=== PATIENT | female | born 1945 | race Caucasian/White ===

== ENCOUNTER 2017-01-28 09:37 | Emergency (ER) | payer MEDICARE, OTHER ==
[~2017-01-28] VITALS: Ht 157.5 cm; Wt 95.9 kg
[~2017-01-28 09:37] MED LIST: ASPI325T6 PO; CALCIUM 500 W/V1 TAB PO; CELEBREX 200MG200 MG PO; CHOLESTEROL MA600 MG PO; CO Q-1010 MG PO; COUMADIN 1MG1 MG/TAB PO; FERROUS SU325 MG/TAB PO; FOLIC ACID 40400 MCG PO; FOLIC ACID0.4 MG PO; MULTIPLE VITAMI1 CAP PO; NEXIUM 40MG40 MG PO; NORCO 325 MG-7.1 TAB PO; ULTRAM 50MG TAB50 MG PO; VITAMIN C500 MG PO; VITAMIN D32000 I1 PO; ZOLOFT 50MG50 MG PO; [UNRECOGNIZED DRUG - OTHER]
[2017-01-28 09:43] VITALS: BP 158/81; TEMP 97.7
[2017-01-28] MEDS ORDERED: D3-5050000 IU (10:23)
[2017-01-28] MEDS ORDERED: NORCO 325 MG-51 TAB PO (11:03)
[2017-01-28] MEDS ORDERED: PROTONIX 40MG T40 MG PO (11:35)
[2017-01-28] MEDS ORDERED: CLARITIN 1010 MG/TAB PO (11:35)
[2017-01-28 11:54] VITALS: PULSE 69
== END 2017-01-28 12:10 | disposition home or self-care (01) ==
LOC: COL.ER 09:37
DX: S82.831A Other fracture of upper and lower end of right fibula, initial encounter for closed fracture (principal); K21.9 Gastro-esophageal reflux disease without esophagitis; X50.1XXA Overexertion from prolonged static or awkward postures, initial encounter; Y92.009 Unspecified place in unspecified non-institutional (private) residence as the place of occurrence of the external cause

== ENCOUNTER → 2017-09-29 | Outpatient (CLI) | payer MEDICARE, OTHER ==
[~2017-09-29] MED LIST changes: +CLARITIN 1010 MG/TAB PO; +D3-5050000 IU; +NORCO 325 MG-51 TAB PO; +PROTONIX 40MG T40 MG PO
== END ==
LOC: MC.RAD 07:51
DX: Z12.31 Encounter for screening mammogram for malignant neoplasm of breast (principal); I10 Essential (primary) hypertension

== ENCOUNTER 2017-11-22 10:35 | Observation (INO) | payer MEDICARE, OTHER ==
[~2017-11-22] VITALS: Ht 157.5 cm; Wt 84.5 kg
[2017-11-22 10:55] LABS: BASO # 0.1 (0.0-0.2); BASO % 1.9 % (0.0-2.0); EOS # 0.2 (0.0-0.7); EOS % 3.2 % (0-4.0); GRAN # 3.9 (1.4-6.5); GRAN % 63.7 % (42.2-75.2); HEMATOCRIT 40.4 % (37.0-47.0); HEMOGLOBIN 13.3 g/dl (12.5-16.0); LYMPH # 1.6 (1.2-3.4); LYMPH % 25.2 % (20.0-51.0); MEAN CELL VOLUME 87 fl (80.0-100.0); MEAN CORPUSCULAR HEMOGLOBIN 29 pg (27.0-31.0); MEAN CORPUSCULAR HGB CONC 33 g/dl (33.0-37.0); MEAN PLATELET VOLUME 10.6 fl (7.4-10.4); MONO # 0.4 (0.1-0.6); MONO % 5.7 % (1.7-9.3); PLATELET COUNT 187 K/mm3 (130-400); RED BLOOD COUNT 4.62 M/mm3 (4.10-5.30); REDCELL DISTRIBUTION WIDTH-CV 13.5 % (11.5-14.5)
[2017-11-22] MEDS ORDERED: PRINIVIL20 MG PO (10:58)
[2017-11-22 11:04] LABS: ALANINE AMINOTRANSFERASE 22 U/L (9-52); ALBUMIN 4.4 gm/dL (3.5-5.0); ALKALINE PHOSPHATASE 91 U/L (50-136); ANION GAP 13 mmol/L (7-16); AST,SGOT 22 U/L (15-37); BILIRUBIN,TOTAL 0.6 mg/dL (0.0-1.0); BLOOD UREA NITROGEN 20 mg/dL (7-17); CALCIUM 10.6 mg/dL (8.4-10.2); CARBON DIOXIDE 26 mmol/L (22-30); CHLORIDE 101 mmol/L (98-107); CREATININE, serum 0.85 mg/dL (0.52-1.25); GLUCOSE 105 mg/dL (74-106); LIPASE 109 U/L (23-300); SODIUM 140 mmol/L (137-145); TOTAL PROTEIN 7.8 gm/dL (6.4-8.2)
[2017-11-22 11:20] LABS: TROPONIN-I < 0.012 ng/mL (0.000-0.034)
[2017-11-22] MEDS ORDERED: MAGNESIUM200 MG PO (12:35)
[2017-11-22] MEDS ORDERED: OSCAL 500 TAB500 MG PO (12:35)
[2017-11-22] MEDS ORDERED: PHARMASSURE CHE30 MG PO (12:36)
[2017-11-22] MEDS ORDERED: FISH OIL 1000MG1 CAP PO (12:38)
[2017-11-22] MEDS ORDERED: D3-5050000 IU PO (12:38)
[2017-11-22] MEDS ORDERED: THE MEDICINE S200 M2 PO (12:38)
[2017-11-22 13:19] VITALS: BP 130/64; PULSE 69; TEMP 98.4
[2017-11-22 15:55] VITALS: BP 130/64; PULSE 69
[2017-11-22 16:16] VITALS: BP 129/53; PULSE 70; TEMP 98
[2017-11-22 20:33] VITALS: BP 129/70; PULSE 72; TEMP 97.8
[2017-11-22 20:55] LABS: COLLECTION METHOD CLEAN CATCH
[2017-11-22 21:04] LABS: MUCOUS Present /lpf; PH 5 (5-8); SQUAMOUS EPITHELIAL 0-2 /hpf; URINE APPEARANCE Clear; URINE BACTERIA Rare /hpf; URINE BILIRUBIN Negative (NEGATIVE); URINE BLOOD Negative (NEGATIVE); URINE COLOR Straw; URINE GLUCOSE Negative (NEGATIVE); URINE KETONE Negative (NEGATIVE); URINE LEUKOCYTE ESTERASE Trace (NEGATIVE); URINE NITRATE Negative (NEGATIVE); URINE PROTEIN(semi-quant) Negative (NEGATIVE); URINE RBC 0-2 /hpf; URINE UROBILINOGEN Negative (NEGATIVE)
[2017-11-22 23:10] VITALS: BP 138/71; PULSE 67; TEMP 98.6
[2017-11-23 06:31] LABS: BASO # 0.1 (0.0-0.2); BASO % 2.5 % (0.0-2.0); EOS # 0.2 (0.0-0.7); EOS % 4.5 % (0-4.0); GRAN # 2.5 (1.4-6.5); GRAN % 55.3 % (42.2-75.2); HEMOGLOBIN 11.8 g/dl (12.5-16.0); LYMPH # 1.3 (1.2-3.4); LYMPH % 29.8 % (20.0-51.0); MEAN CELL VOLUME 89 fl (80.0-100.0); MEAN CORPUSCULAR HEMOGLOBIN 29 pg (27.0-31.0); MEAN CORPUSCULAR HGB CONC 33 g/dl (33.0-37.0); MEAN PLATELET VOLUME 11.3 fl (7.4-10.4); MONO # 0.3 (0.1-0.6); MONO % 7.4 % (1.7-9.3); PLATELET COUNT 131 K/mm3 (130-400); REDCELL DISTRIBUTION WIDTH-CV 13.4 % (11.5-14.5)
[2017-11-23 06:32] LABS: HEMATOCRIT 36.3 % (37.0-47.0)
[2017-11-23 06:41] LABS: CALCIUM 9.4 mg/dL (8.4-10.2); CHOLESTEROL RISK RATIO 5.9; CREATININE, serum 0.84 mg/dL (0.52-1.25); POTASSIUM 4.1 mmol/L (3.4-5.0)
[2017-11-23 07:46] VITALS: BP 144/74; PULSE 72; TEMP 98.6
[2017-11-23 13:26] VITALS: BP 125/53; PULSE 80; TEMP 98.4
[2017-11-23] MEDS ORDERED: NITROSTAT0.4 MG/TAB SL (14:46)
== END 2017-11-23 16:30 | disposition home or self-care (01) ==
LOC: COL.ER 10:35 → MEDICAL 11:28
PROVIDERS: Emergency Medicine; Physician Assistant
DX: R07.9 Chest pain, unspecified (principal); I10 Essential (primary) hypertension; F32.9 Major depressive disorder, single episode, unspecified; K21.9 Gastro-esophageal reflux disease without esophagitis; Z79.899 Other long term (current) drug therapy
CPT/HCPCS: A9502; J1650; J7030

== ENCOUNTER → 2018-01-02 | Outpatient (CLI) | payer MEDICARE, OTHER ==
[~2018-01-02] MED LIST changes: +D3-5050000 IU PO; +FISH OIL 1000MG1 CAP PO; +MAGNESIUM200 MG PO; +NITROSTAT0.4 MG/TAB SL; +OSCAL 500 TAB500 MG PO; +PHARMASSURE CHE30 MG PO; +PRINIVIL20 MG PO; +THE MEDICINE S200 M2 PO
== END ==
LOC: COL.RAD 07:29
DX: K30 Functional dyspepsia (principal); K21.9 Gastro-esophageal reflux disease without esophagitis; R05 Cough; R49.0 Dysphonia
CPT/HCPCS: A9541

== ENCOUNTER → 2018-11-03 | Outpatient (CLI) | payer MEDICARE, OTHER | LOC: MC.RAD 11:46 | DX: Z12.31 Encounter for screening mammogram for malignant neoplasm of breast (principal) ==

== ENCOUNTER → 2019-11-05 | Outpatient (CLI) | payer MEDICARE, OTHER | LOC: MC.RAD 13:43 | DX: Z12.31 Encounter for screening mammogram for malignant neoplasm of breast (principal) ==

== ENCOUNTER → 2020-12-24 | Outpatient (CLI) | payer MEDICARE, OTHER | LOC: MC.RAD 11-14 08:45 | DX: Z12.31 Encounter for screening mammogram for malignant neoplasm of breast (principal) ==

== ENCOUNTER 2021-05-02 12:17 | Emergency (ER) | payer MEDICARE, OTHER ==
[~2021-05-02] VITALS: Ht 157.5 cm; Wt 91.8 kg
[2021-05-02 12:33] VITALS: TEMP 98.4
[2021-05-02 12:51] LABS: BASO # 0.1 K/mm3 (0.0-0.2); EOS # 0.2 K/mm3 (0.0-0.7); EOS % 2.8 % (0.0-4.0); GRAN # 4.4 K/mm3 (1.4-6.5); GRAN % 66.6 % (42.2-75.2); HEMOGLOBIN 11.7 g/dl (12.5-16.0); LYMPH # 1.5 K/mm3 (1.2-3.4); LYMPH % 22.9 % (20.0-51.0); MEAN CELL VOLUME 85 fl (80.0-100.0); MEAN CORPUSCULAR HEMOGLOBIN 27 pg (27-31); MEAN CORPUSCULAR HGB CONC 32 g/dl (33.0-37.0); MEAN PLATELET VOLUME 10.4 fl (7.4-10.4); MONO # 0.4 K/mm3 (0.1-0.6); MONO % 5.4 % (1.7-9.3); PLATELET COUNT 207 K/mm3 (130-400); RED BLOOD COUNT 4.35 M/mm3 (4.10-5.30); REDCELL DISTRIBUTION WIDTH-CV 14.6 % (11.5-14.5)
[2021-05-02 13:09] LABS: ALANINE AMINOTRANSFERASE 15 U/L (0-55); ALKALINE PHOSPHATASE 91 U/L (40-150); ANION GAP 12 mmol/L (7-16); AST,SGOT 20 U/L (5-34); BILIRUBIN,TOTAL 0.6 mg/dL (0.2-1.2); BLOOD UREA NITROGEN 17 mg/dL (10-20); CALCIUM 9.8 mg/dL (8.4-10.2); CARBON DIOXIDE 24 mmol/L (23-31); CHLORIDE 104 mmol/L (98-107); CREATININE, serum 0.94 mg/dL (0.57-1.11); GLUCOSE 95 mg/dL (70-99); POTASSIUM 4.1 mmol/L (3.5-4.5); SODIUM 140 mmol/L (136-145); TOTAL PROTEIN 7.6 gm/dL (6.2-8.1)
[2021-05-02 13:18] LABS: TROPONIN-I < 0.010 ng/mL (0.00-0.033)
[2021-05-02 16:20] VITALS: BP 137/69; PULSE 66
== END 2021-05-02 16:25 | disposition home or self-care (01) ==
LOC: COL.ER 12:17
PROVIDERS: Nurse Practitioner
DX: R07.89 Other chest pain (principal)

== ENCOUNTER 2021-08-02 07:21 | Emergency (ER) | payer MEDICARE, OTHER ==
[~2021-08-02] VITALS: Ht 157.5 cm; Wt 93.6 kg
[2021-08-02 07:30] VITALS: TEMP 98.1
[2021-08-02 08:03] LABS: BASO # 0.1 K/mm3 (0.0-0.2); BASO % 2.6 % (0.0-2.0); EOS # 0.2 K/mm3 (0.0-0.7); EOS % 4.3 % (0.0-4.0); GRAN # 3.3 K/mm3 (1.4-6.5); GRAN % 64.7 % (42.2-75.2); HEMATOCRIT 37.4 % (37.0-47.0); LYMPH # 1.1 K/mm3 (1.2-3.4); LYMPH % 21.7 % (20.0-51.0); MEAN CELL VOLUME 82 fl (80.0-100.0); MEAN CORPUSCULAR HEMOGLOBIN 26 pg (27-31); MEAN CORPUSCULAR HGB CONC 32 g/dl (33.0-37.0); MEAN PLATELET VOLUME 10.6 fl (7.4-10.4); MONO # 0.3 K/mm3 (0.1-0.6); MONO % 6.5 % (1.7-9.3); PLATELET COUNT 190 K/mm3 (130-400); RED BLOOD COUNT 4.57 M/mm3 (4.10-5.30); REDCELL DISTRIBUTION WIDTH-CV 14.6 % (11.5-14.5)
[2021-08-02 08:06] LABS: COLLECTION METHOD CLEAN CATCH
[2021-08-02 08:14] LABS: PH 6 (5-8); URINE APPEARANCE Hazy (CLEAR/HAZY); URINE BACTERIA Rare /hpf (NONE SEEN); URINE BILIRUBIN Negative (NEGATIVE); URINE BLOOD 2+ (NEGATIVE); URINE COLOR Yellow (YELLOW); URINE GLUCOSE Negative (NEGATIVE); URINE KETONE Negative (NEGATIVE); URINE LEUKOCYTE ESTERASE 1+ (NEGATIVE); URINE NITRATE Negative (NEGATIVE); URINE PROTEIN(semi-quant) Negative (NEGATIVE); URINE RBC >50 /hpf (0-2); URINE UROBILINOGEN Negative (NEGATIVE)
[2021-08-02 08:19] LABS: ALBUMIN 3.9 gm/dL (3.4-4.8); BILIRUBIN,TOTAL 0.5 mg/dL (0.2-1.2); CALCIUM 9.6 mg/dL (8.4-10.2); CREATININE, serum 0.98 mg/dL (0.57-1.11); POTASSIUM 4.1 mmol/L (3.5-4.5); TOTAL PROTEIN 7.8 gm/dL (6.2-8.1)
[2021-08-02] MEDS ORDERED: BACTRIM DS 8001 TAB PO (09:26)
[2021-08-02 09:44] VITALS: BP 151/97; PULSE 72
== END 2021-08-02 09:44 | disposition home or self-care (01) ==
LOC: COL.ER 07:21
PROVIDERS: Student in an Organized Health Care Education/Training Program
DX: N39.0 Urinary tract infection, site not specified (principal); Z90.49 Acquired absence of other specified parts of digestive tract; Z90.710 Acquired absence of both cervix and uterus; Z87.442 Personal history of urinary calculi; Z88.1 Allergy status to other antibiotic agents
CPT/HCPCS: Q9967

== ENCOUNTER → 2022-02-11 | Outpatient (CLI) | payer MEDICARE, OTHER ==
[~2022-02-11] MED LIST changes: +BACTRIM DS 8001 TAB PO
== END ==
LOC: MC.RAD 08:31
DX: Z12.31 Encounter for screening mammogram for malignant neoplasm of breast (principal)

== ENCOUNTER → 2022-06-22 | Outpatient (CLI) | payer MEDICARE, OTHER | LOC: COL.CARD 10:12 | DX: R00.2 Palpitations (principal) ==

== ENCOUNTER → 2023-04-13 | Outpatient (CLI) | payer MEDICARE ==
[~2023-04-13] MED LIST changes: +FLEXERIL 1010 MG/TAB PO
== END ==
LOC: MC.RAD 11:28
DX: Z12.31 Encounter for screening mammogram for malignant neoplasm of breast (principal)

== ENCOUNTER 2023-07-06 17:03 | Emergency (ER) | payer MEDICARE, OTHER ==
[~2023-07-06] VITALS: Ht 157.5 cm; Wt 95.5 kg
[2023-07-06] MEDS ORDERED: Morphine 4 MG/ML VIAL IV ONE (17:30)
[2023-07-06] MEDS ORDERED: Ondansetron 4 MG/2 ML VIAL IV ONE (17:30)
[2023-07-06 17:34] LABS: BASO # 0.1 K/mm3 (0.0-0.2); BASO % 1.9 % (0.0-2.0); EOS # 0.3 K/mm3 (0.0-0.7); EOS % 4.8 % (0.0-4.0); GRAN # 4.6 K/mm3 (1.4-6.5); GRAN % 67.3 % (42.2-75.2); HEMATOCRIT 37.7 % (37.0-47.0); HEMOGLOBIN 12.4 g/dl (12.5-16.0); LYMPH # 1.3 K/mm3 (1.2-3.4); LYMPH % 18.8 % (20.0-51.0); MEAN CELL VOLUME 88 fl (80.0-100.0); MEAN CORPUSCULAR HEMOGLOBIN 29 pg (27-31); MEAN CORPUSCULAR HGB CONC 33 g/dl (33.0-37.0); MEAN PLATELET VOLUME 10.8 fl (7.4-10.4); MONO # 0.5 K/mm3 (0.1-0.6); MONO % 6.8 % (1.7-9.3); PLATELET COUNT 210 K/mm3 (130-400); RED BLOOD COUNT 4.28 M/mm3 (4.10-5.30); REDCELL DISTRIBUTION WIDTH-CV 14.6 % (11.5-14.5)
[2023-07-06 17:47] LABS: ALANINE AMINOTRANSFERASE 23 U/L (0-55); ALBUMIN 3.9 gm/dL (3.4-4.8); ALKALINE PHOSPHATASE 92 U/L (40-150); ANION GAP 13 mmol/L (7-16); AST,SGOT 23 U/L (5-34); BILIRUBIN,TOTAL 0.3 mg/dL (0.2-1.2); BLOOD UREA NITROGEN 16 mg/dL (10-20); CALCIUM 10.2 mg/dL (8.4-10.2); CARBON DIOXIDE 20 mmol/L (23-31); CHLORIDE 105 mmol/L (98-107); CREATININE, serum 0.92 mg/dL (0.57-1.11); GLUCOSE 125 mg/dL (70-99); LIPASE 33 U/L (8-78); POTASSIUM 3.8 mmol/L (3.5-4.5); SODIUM 138 mmol/L (136-145); TOTAL PROTEIN 7.5 gm/dL (6.2-8.1)
[2023-07-06 17:55] LABS: TROPONIN-I < 0.010 ng/mL (0.00-0.033)
[2023-07-06] MEDS ORDERED: Iohexol 300 - 100 ML VIAL IV ONE (19:10)
[2023-07-06] MEDS ORDERED: NS 50 ML IV ONE (19:14)
[2023-07-06] MEDS ORDERED: OMNICEF 300MG300 MG PO (20:10)
[2023-07-06] MEDS ORDERED: cefTRIAXone 1 G in Water For Injection,Sterile 10 ML IV ONE (20:15)
[2023-07-06 20:30] VITALS: BP 145/84; PULSE 83; TEMP 98.2
== END 2023-07-06 20:30 | disposition home or self-care (01) ==
LOC: COL.ER 17:03
PROVIDERS: Personal Emergency Response Attendant
DX: J18.9 Pneumonia, unspecified organism (principal); K57.90 Diverticulosis of intestine, part unspecified, without perforation or abscess without bleeding; Z88.1 Allergy status to other antibiotic agents
CPT/HCPCS: J0696; Q9967

== ENCOUNTER 2023-09-01 13:00 | Outpatient (RCR) | payer MEDICARE, OTHER | END 2023-09-13 | disposition home or self-care (01) | LOC: WSST | DX: R13.14 Dysphagia, pharyngoesophageal phase (principal) ==

== ENCOUNTER → 2023-09-01 | Outpatient (CLI) | payer MEDICARE, OTHER ==
[~2023-09-01] MED LIST changes: +OMNICEF 300MG300 MG PO
== END ==
LOC: COL.RAD 12:39
DX: K21.9 Gastro-esophageal reflux disease without esophagitis (principal)

== ENCOUNTER 2024-01-03 10:21 | Observation (INO) | payer MEDICARE, OTHER ==
[2024-01-03] VITALS (14 sets, daily range): BP systolic 119–149; BP diastolic 49–79; PULSE 83–93; TEMP 98–98.4
[~2024-01-03] VITALS: Ht 157.5 cm; Wt 93.9 kg
[~2024-01-03 10:21] MED LIST changes: +LR 1,000 ML IV SCH
[2024-01-03 11:16] LABS: BASO # 0.1 K/mm3 (0.0-0.2); BASO % 1.9 % (0.0-2.0); EOS # 0.2 K/mm3 (0.0-0.7); EOS % 3.2 % (0.0-4.0); GRAN # 4.8 K/mm3 (1.4-6.5); GRAN % 68.8 % (42.2-75.2); HEMOGLOBIN 12.1 g/dl (12.5-16.0); LYMPH # 1.4 K/mm3 (1.2-3.4); LYMPH % 20.3 % (20.0-51.0); MEAN CELL VOLUME 88 fl (80.0-100.0); MEAN CORPUSCULAR HEMOGLOBIN 29 pg (27-31); MEAN CORPUSCULAR HGB CONC 33 g/dl (33.0-37.0); MEAN PLATELET VOLUME 10.5 fl (7.4-10.4); MONO # 0.4 K/mm3 (0.1-0.6); MONO % 5.5 % (1.7-9.3); PLATELET COUNT 193 K/mm3 (130-400); RED BLOOD COUNT 4.18 M/mm3 (4.10-5.30); REDCELL DISTRIBUTION WIDTH-CV 13.2 % (11.5-14.5)
[2024-01-03 11:17] LABS: HEMATOCRIT 36.8 % (37.0-47.0)
[2024-01-03] MEDS ORDERED: COZAAR 50MG50 MG/TAB PO (11:25)
[2024-01-03] MEDS ORDERED: PROTONIX 40MG T40 MG PO (11:25)
[2024-01-03] MEDS ORDERED: ALLERGY RELIEF PO (11:26)
[2024-01-03] MEDS ORDERED: D3 PO (11:27)
[2024-01-03] MEDS ORDERED: IRON PO (11:28)
[2024-01-03] MEDS ORDERED: CVS SPECTRAVIT1 EA15 PO (11:28)
[2024-01-03] MEDS ORDERED: VITAMIN C500 MG PO (11:28)
[2024-01-03] MEDS ORDERED: ECHINACEA PO (11:32)
[2024-01-03 11:35] LABS: CREATININE, serum 0.85 mg/dL (0.57-1.11)
[2024-01-03] MEDS ORDERED: WEGOVY1 MG/0.5 M SQ (11:36)
[2024-01-03] MEDS ORDERED: fentaNYL 50 MCG/ML 5 ML VIAL ONE (12:31)
[2024-01-03] MEDS ORDERED: dexAMETHasone 10 MG/ML VIAL ONE (12:31)
[2024-01-03] MEDS ORDERED: Lidocaine PF 2% (20 MG/ML) 5 ML VIAL ONE (12:31)
[2024-01-03] MEDS ORDERED: Ondansetron 4 MG/2 ML VIAL ONE (12:31)
[2024-01-03] MEDS ORDERED: Rocuronium 50 MG/5 ML Multi-Dose VIAL ONE ×2 (12:32→13:45)
[2024-01-03] MEDS ORDERED: droPERidol 2.5 MG/ML 2 ML VIAL IV PRN (13:30)
[2024-01-03] MEDS ORDERED: fentaNYL 50 MCG/ML 1 ML SYRINGE/VIAL [PACU/SDC ONLY] IV PRN (13:30)
[2024-01-03] MEDS ORDERED: Meperidine 50 MG/ML 1 ML VIAL IV PRN (13:30)
[2024-01-03] MEDS ORDERED: hydrALAZINE 20 MG/ML 1 ML VIAL IV PRN (13:30)
[2024-01-03] MEDS ORDERED: Topical Skin Adhesive 1 EACH (1 ML) TOP ONE (13:30)
[2024-01-03] MEDS ORDERED: HYDROmorphone 1 MG/1 ML SYRINGE [PACU/SDC ONLY] IV PRN (13:30)
[2024-01-03] MEDS ORDERED: hydrALAZINE 20 MG/ML 1 ML VIAL ONE (13:31)
[2024-01-03] MEDS ORDERED: fentaNYL 50 MCG/ML 2 ML VIAL ONE (14:23)
[2024-01-03] MEDS ORDERED: Morphine 4 MG/ML VIAL IV PRN (14:45)
[2024-01-03] MEDS ORDERED: Ondansetron 4 MG/2 ML VIAL IV PRN (14:45)
--- NOTE | 2024-01-03 16:40 | NUR ---
pt a&ox4 admitted to room from PACU. vss. pt on 4L nasal cannula. pt drowsy but easily arousable. at bedside. med rec and assessment complete. x6 abdominal incisions are cdi. scds to ble. pt tolerating ice chips. oriented to room. call light in reach. no needs at this time.
--- NOTE | 2024-01-03 23:15 | NUR ---
Patient assessed around this time, see shift assessment, A/O, assisted patient to walk at this time, felt dizzy and assisted patient back to bed, VSS, reports pain to abdomen as well medicated with [place] at 230, after few minutes of taking [place] patient complained of nausea, IV zofran given at 231, denies futher needs, call light and personal items within reach, will continue to monitor.
[2024-01-04] VITALS (12 sets, daily range): BP systolic 116–154; BP diastolic 73–83; PULSE 78–91; TEMP 97.9–98.4
--- NOTE | 2024-01-04 01:28 | NUR ---
Patient reports minimal pain at this time, reports the nausea is gone, reports she's been burping but has not pass any gas yet,denies further needs, still with oxygen via nasal cannula at 2LPM, satting 96%, will continue to monitor.
--- NOTE | 2024-01-04 08:35 | NUR ---
Pt doing okay this morning. She is currently sitting up in the chair. She is tolerating liquids, just stated that she has to take it slow. Pt reports that her throat feels "tight". Pt spouse arrived to the room, no questions at this time. Will continue to monitor.
[2024-01-04] MEDS ORDERED: NORCO 325 MG-51 TAB PO (08:47)
[2024-01-04] MEDS ORDERED: Losartan 50 MG TAB PO SCH (09:00)
[2024-01-04] MEDS ORDERED: Sertraline 50 MG TAB PO SCH (09:00)
[2024-01-04] MEDS ORDERED: Ascorbic Acid 500 MG TAB PO SCH (09:00)
--- NOTE | 2024-01-04 09:00 | NUR ---
JORGE met with patient and to complete initial assessment for discharge planning. Patient verified that she and /DIONNE Medina ([phone]) live in [place]. Patient lists her daughter Munira Velázquez ([phone]) as alternate contact. Patient sees Dr. Herman Haji as her PCP and uses [facility]. Patient reports to have a walker, scooter, wheelchair, shower chair, grab bars and CPAP at home. Patient reports to be normally independent with all activities. Patient is covered by Medicare [employer] and for [employer] insurances. Patient plans to return home at discharge. Discharge plan: Home
--- NOTE | 2024-01-04 11:00 | NUR ---
Pt became nauseated following pain medication. PRN zofran given. Also applied K-pad at that time for complaints of pain in her right shoulder. Pt reported that the nausea medication did help. Educated that it was possibly due to the pain medication being given with only fluids in her stomach. Stated that now since she could have full liquids, it would hopefully help. PT verbalized understanding
--- NOTE | 2024-01-04 13:04 | NUR ---
Iniiital visit; Patient resting, [employer] spoke with her offering God's blessings and an offer to keep her in [employer]'s prayers. He smiled and nodded.
--- NOTE | 2024-01-04 14:20 | NUR ---
Pt continues to do well, PRN pain medication working for her pain. Pt has had complaints of right shoulder pain in which she has been using the k-pad for. Right shoulder does have the appearance of being lower than her left shoulder. Will discuss with physician.
--- NOTE | 2024-01-04 20:00 | NUR ---
PT A&O X4 SITTING UP IN CHAIR. AMBULATED BACK TO BED WITH SBA. RT IN ROOM AND PLACED PT BACK ON 1L/NC 02 SAT WAS 88%. VSS. PT REPORTING PAIN HAS IMPROVED SINCE PRN NORCO GIVEN BY DAYSHIFT NURSE AT SHIFT CHANGE. PT CONTINUES TO USE KPAD TO HELP WITH RT SHOULDER PAIN. DENYING N/V OR FURTHER NEEDS. CALL LIGHT IN REACH
[2024-01-05] VITALS (7 sets, daily range): BP systolic 117–154; BP diastolic 72–78; PULSE 78–81; TEMP 97.5–98
--- NOTE | 2024-01-05 05:55 | NUR ---
PT RESTING SITTING UP IN RECLINER. GAVE PRN NORCO AT 0445 FOR ABD PAIN 10/23, WHEN REASSESSED PT REPORTS PAIN IS MUCH BETTER. DENYING N/V OR FURTHER NEEDS. CALL LIGHT IN REACH
--- NOTE | 2024-01-05 07:21 | NUR ---
Pt doing well this morning. She states that she feels better than yesterday and slept better last night. Pts right shoulder not bothering her as much. Pt has ordered some breakfast, no other needs at this time. Encouraged her to use the IS, pt does have proper technique. Call light within reach
--- NOTE | 2024-01-05 13:45 | NUR ---
Reviewed discharge instructions with pt and spouse. All questions answered, INT removed and pt being escorted out via wheelchair
== END 2024-01-05 13:50 | disposition home or self-care (01) ==
LOC: SDCO 10:21 → SURG 16:44 → SDCO 16:48 → SURG 17:10 → SDCO 01-05 13:47 → SURG 01-05 13:50 → SDCO 01-08 12:30
PROVIDERS: ADMIT Surgery
DX: K44.9 Diaphragmatic hernia without obstruction or gangrene (principal); K21.9 Gastro-esophageal reflux disease without esophagitis; G47.33 Obstructive sleep apnea (adult) (pediatric)
CPT/HCPCS: OP; A9284; G0378; J0360; J0690; J1100; J1170; J1650; J1790; J2405; J2704; J3010; J7120